=== PATIENT | female | born 1975 | race Hispanic/Latino ===

== ENCOUNTER 2019-12-26 08:10 | Outpatient (RCR) | payer OTHER, SELFPAY ==
[2019-12-26] MEDS: RHO(D) IMMUNE GLOBULIN 300 MCG SYRINGE IM (11:14)
== END 2019-12-26 08:11 | disposition home or self-care (01) ==
LOC: ANHLAB 08:10
PROVIDERS: Visit Provider Obstetrics & Gynecology
DX: Z29.13 Encounter for prophylactic Rho(D) immune globulin (principal); O36.0990 Maternal care for other rhesus isoimmunization, unspecified trimester, not applicable or unspecified; Z3A.00 Weeks of gestation of pregnancy not specified
CPT/HCPCS: 36415; 85461; 86850; 90384; 96372; J2790

== ENCOUNTER 2020-01-30 15:25 | Outpatient (CLI) | payer OTHER, SELFPAY ==
[2020-01-30 16:05] LABS: Hematocrit 30.4 % (37.0-47.0); Hemoglobin 10.1 g/dL (12.0-15.0); Mean Corpuscular HGB Conc 33.2 g/dl (32-36); Mean Corpuscular Hemoglobin 32.1 pg (26-34); Mean Corpuscular Volume 96.5 fl (80-100); Platelet Count Result 306 k/mm3 (150-375); Red Blood Count 3.15 M/mm3 (4.2-5.4); Red Cell Distribution Width 14.5 % (11.5-14.5); White Blood Count 6.9 K/mm3 (4.5-10.0)
[2020-01-31 09:50] LABS: Rapid Plasma Reagin Non-Reactive (NonReactive)
== END 2020-01-30 15:26 | disposition home or self-care (01) ==
LOC: ANHLAB 15:27
PROVIDERS: PCP Physician Assistant; Visit Provider Obstetrics & Gynecology
DX: O34.218 Maternal care for other type scar from previous cesarean delivery (principal); Z3A.29 29 weeks gestation of pregnancy
CPT/HCPCS: 36415; 85027; 86592; 86850; 86880; 86900; 86901; 86902

== ENCOUNTER 2020-01-31 11:36 | Inpatient (IN) | payer OTHER, SELFPAY ==
--- NOTE | 2020-01-30 14:58 | PC.NURSE ---
VERIFIED WITH OR SCHEDULE AND PATIENT--C/S WITH TUBAL LIGATION ON AT 1330 PATIENT SENT TO LAB FOR PRE-OP LAB DRAW AFTER PRE-ADMIT APPOINTMENT
--- NOTE | 2020-01-30 19:54 | PM.IMHP ---
H&P: HPI History of Present Illness Date/Time: 01/30/20 19:54 Chief complaint: Pre-admit; please obtain ins/id/consents on dos Narrative: Florinda Lucio is a 44 year old female [id number] 39 weeks with complicated by advanced maternal age, obesity, MTHFR, RhD negative, and previous deliveries by presents today for a repeat and bilateral tubal sterilizationShe has signed the [facility] she understands that sterilization is permanent irreversible and does not desire future fertility. She understands the failure rate of 3 to 06/999 with increased risk of ectopic and sequelae. She understands the risk of surgery including but not limited to bleeding infection injury to bladder bowel baby pelvic vessels DVT pneumonia wound infections endometritis UTI and the risk of anesthesia and she agrees to proceed. Review of Systems Review of Systems: All systems reviewed & are unremarkable except as noted in HPI and below Constitutional: Constitutional: Reports no additional constitutional complaints Eyes: Eyes: Reports no additional eye complaints ENT: Reports system reviewed and no additional complaints, except as documented Cardiovascular: Cardiovascular: Reports no additional cardiovascular complaints Respiratory: Respiratory: Reports no additional respiratory complaints Gastrointestinal: Gastrointestinal: Reports no additional gastrointestinal complaints Genitourinary: Genitourinary: Reports no additional female genitourinary complaints Musculoskeletal: Musculoskeletal: Reports no additional musculoskeletal complaints Integumentary/Breasts: Skin/Breast: Reports system reviewed and no additional complaints, except as docu Neurologic: Reports system reviewed and no additional complaints, except as documented Psychiatric: Psychiatric: Reports no additional psychiatric complaints Endocrine: Endocrine: Reports no additional endocrine complaints Hematologic/Lymphatic: Hematologic/Lymphatic: Reports no additional hematologic/lymphatic complaints Allergic/Immunologic: Allergic/Immunologic: Reports no additional allergic/immunologic complaints PMFSH Past Medical History Medical History (Updated 01/30/20 @ 20:27 by Zen Mcgee MD) Advanced maternal age (AMA), 40 years or greater Anemia Encounter for female sterilization procedure History of candidiasis of vagina History of UTI Homozygous for MTHFR gene mutation Obesity Surgical History Surgical History (Updated 01/30/20 @ 20:27 by Zen Mcgee MD) Delivery by section 09-02-1999, 37 wks 1. M, 7lbs 2oz, Primary Family History Family History Father Diabetes mellitus Leukemia Grandparent Diabetes mellitus Son Autism Social History Social History (Updated 01/30/20 @ 20:29 by Zen Mcgee MD) Smoking status: Never smoker Second hand tobacco smoke exposure: No Alcohol intake: never Substance use: never Living arrangements: with family Occupation/Education: occupation Gender identity (if verbalized by the patient): Female Sexual Orientation (if Verbalized by the Patient): Straight or Heterosexual Spiritual care concerns: No Agree to blood products: Yes Meds Home Medications and Allergies Allergies Allergy/AdvReac Type Severity Reaction Status Date / Time azithromycin Allergy Hives Verified 01/30/20 14:45 Sulfa (Sulfonamide Allergy Hives Verified 01/30/20 14:45 Antibiotics) Exam Const: General: cooperative, healthy appearing, comfortable, no acute distress, well developed, alert, awake and Physically active Nutritional Appearance: average body habitus, well nourished and overweight Orientation/consciousness: patient oriented x3 Limitations: no limitations HENMT: Head: normal to inspection Mouth: Yes moist mucous membranes Eyes: General: appearance normal, both
--- NOTE | 2020-01-30 20:37 | WPDHPUPDATE1 ---
History and Physical Update Update Date/Time: 01/30/20 20:37 History and Physical has been reviewed, including an updated exam of the patient. There are NO changes in the patient's condition. Risks, benefits, and alternatives have been discussed and questions answered. Patient agrees to proceed with procedure. 44 yo with complicated by advanced maternal age, obesity, MTHFR, RhD negative, and previous deliveries by presents today for a repeat low transverse section with delivery of baby and placenta and bilateral tubal sterilization with bilateral salpingectomy under spinal anesthesia at 39w1d. Informed consent obtained [facility] tubal consent forms signed and in chart for sterilization antibiotic prophylaxis will be given
--- NOTE | 2020-01-30 20:39 | WPDOBADMIT ---
Obstetrics - Admit Note Admission Note: record reviewed. No pertinent additions to the history and/or any subsequent changes in the physical findings that are not consistent with the expected course of the were found. Additions to the history and/or subsequent changes in the physical findings follow. None. 44 yo with complicated by advanced maternal age, obesity, MTHFR, RhD negative, and previous deliveries by presents today at 39w1d. for repeat low-transverse section with delivery of baby and placenta and bilateral tubal sterilization with bilateral salpingectomy under spinal anesthesia informed consent obtained [place] [facility] Public aid tubal consent form for sterilization is in chart antibiotic prophylaxis will be given SCDs for VTE prevention I explained her condition procedure risks and she understands accepts and agrees to proceed
[2020-01-31] VITALS (38 sets, daily range): BP systolic 89–152; BP diastolic 40–125; PULSE 64–94; RESP 16–18; TEMP 36.3–36.8; O2SAT 95–100; BMI 39.0
--- NOTE | 2020-01-31 11:36 | LDADM ---
This patient, Florinda Lucio, was admitted to Labor/Delivery/Recovery 120 on 01/31/20 at 11:36. Plans for labor, pain management and were discussed with patient. Patient/family oriented to hospital policies and general routines including ID bracelet, bed and alarms, visiting hours, pain management, procedures, bathroom and other care routines, personal items, smoking policy, room service/diet and guest tray routines, security routines, and visiting hours. Patient/Family are encouraged to report perceived risks to care and to ask questions if they do not understand what they are told or what they should do. See OBIX for further documentation.
[2020-01-31] MEDS: LACTATED RINGERS 1,000 ML 999 ML IV CONT (12:24)
[2020-01-31] MEDS: LACTATED RINGERS 1,000 ML 125 ML IV CONT (13:08)
--- NOTE | 2020-01-31 13:16 | WPDANESEPPF ---
Anes - Initial Pre Proc Eval Procedure: Operation Date: 01/31/20 13:30 Proposed Procedures p Repeat Low Transverse Section With Bilateral Tubal Ligation, Bilateral Salpingectomy - Zen Mcgee MD Date/Time: 01/31/20 13:16 Surgeon: Zen Mcgee MD Pre Op Diagnosis: C/S Patient Data Age: 44 Gender: F Height: 1.6 m Weight: 100 kg Last Vital Signs Pulse 94 01/31/20 12:27 BP 113/64 01/31/20 12:27 Allergies Allergy/AdvReac Type Severity Reaction Status Date / Time azithromycin Allergy Hives Verified 01/30/20 14:45 Sulfa (Sulfonamide Allergy Hives Verified 01/30/20 14:45 Antibiotics) Patient hx anesthesia problems: none Family hx anesthesia problems: none PMFSH Past Medical History Medical History (Updated 01/30/20 @ 20:27 by Zen Mcgee MD) Advanced maternal age (AMA), 40 years or greater Anemia Encounter for female sterilization procedure History of candidiasis of vagina History of UTI Homozygous for MTHFR gene mutation Obesity Surgical History Surgical History (Updated 01/30/20 @ 20:27 by Zen Mcgee MD) Delivery by section 09-02-1999, 37 wks 1. M, 7lbs 2oz, Primary Family History Family History Father Diabetes mellitus Leukemia Grandparent Diabetes mellitus Son Autism Social History Social History (Updated 01/30/20 @ 20:29 by Zen Mcgee MD) Smoking status: Never smoker Second hand tobacco smoke exposure: No Alcohol intake: never Substance use: never Gender identity (if verbalized by the patient): Female Spiritual care concerns: No Agree to blood products: Yes Anes - Eval Final PreProcedure Day of Procedure 01/31/20 13:16 Patient weight: obese Heart: regular rate and rhythm Lungs: clear to auscultation and normal air movement Airway: Mallampati scale class II Neurological: alert and oriented Last oral intake: >/= 8 hours ASA classification: III Emergent: no Anesthetic plan: proceed Anesthesia type and monitoring: regional spinal Informed Consent: The patient's anesthetic plan and its attendant risks and benefits were discussed with the patient/family/POA. Questions were solicited and answers provided to the satisfaction of the patient/family/POA.
[2020-01-31] MEDS: ceFAZolin 2 GM/D5W 50 ML 2 GM/50 ML BAG IVPB (13:36)
--- NOTE | 2020-01-31 13:40 | PM.PROC ---
Procedure Note - Detailed Date of procedure: 01/31/20 Pre-op diagnosis: C/S Term Previous desires repeat section Multiparity desires bilateral tubal sterilization Advanced maternal age Homozygous for MTHFR gene mutation Obesity Anemia Post-op diagnosis: same (Delivered viable female infant and placenta) Procedure performed: Repeat low transverse section with delivery of viable female infant and placenta Bilateral tubal sterilization with bilateral salpingectomy complete Description of procedure: Informed consent obtained patient taken to the operating room spinal anesthetic was administered in the sitting position patient placed in supine position Jackson catheter inserted abdomen prepped and draped in usual sterile fashion time-out was then performed. Elliptical incision was made around the old scar and the old scar was removed using electrocautery fascia was entered with electrocautery bilaterally undermined superior inferior rectus muscle the midline peritoneum entered with electrocautery vesicouterine peritoneal reflection was incised transversely. A transverse incision was then made to the uterus clear fluid was obtained upon entry to the amniotic sac the uterus incision was digitally divided and the vertex was then delivered via the abdominal incision nuchal cord x1 reduced of note cord was in front of the head with Vasa previa the was delivered and placed onto the maternal abdomen where the nose and throat were bulb suction number spontaneous respirations and cry no observed abnormalities in the examination cord was clamped and cut and the infant was handed to the nursery nurse in attendance scores given 8 9 weight 12989 in long taken to the nursery in stable condition. Cord gas obtained cord blood obtained the placenta was then delivered intact three-vessel cord the uterus contracted well dosing given intravenously and 10 units into the myometrium the uterus was externalized blood clots membranes removed from the intrauterine cavity. The uterus was externalized and the uterine incision was then repaired in 2 layers with 0 Vicryl in a running interlocking fashion the 2nd being an imbricating stitch. Bilateral tubal sterilization was then performed in the following fashion the fallopian tubes and a bilateral sequential fashion were traced out to the fimbriated aspect the fallopian tube were grasped with Neil clamps and peons were placed at the proximal tube the arcuate vessel and the fimbrial varicose electrocautery was used to excise both fallopian tubes and sent off for pathologic confirmation the proximal tube the arcuate vessel and the fimbriae of Caren were then doubly ligated with 2 0 silk suture and hemostasis was excellent blood and clots removed from the cul-de-sac after irrigation and the uterus was returned to the peritoneal cavity the sponge needle instrument counts correct. The anterior peritoneum and rectus muscles reapproximated with 0 Vicryl suture in a running fashion the fascia was closed with 2. Quill S RS system in a bilateral fashion Jessica's fascia reapproximated with 3 0 plain interrupted fashion skin closed with absorbable ebenezer deep Dermabond to the skin and abdominal dressing of Mepilex was placed after Dermabond to the skin and an abdominal binder was placed to the abdomen for support patient was taken to the recovery room in stable condition she tolerated procedure well both mom and baby are in stable condition Implants: None Anesthesia: spinal Surgeon: Zen Mcgee MD Cost Accountant: tax examining technician x2 Estimated blood loss (mL): 460 IV fluids (mL): 1,500 Urine output (mL): 225 Drains: No Packing: No Pathology: yes (Placenta, cord blood gases, cord blood, complete right and left fallopian tube) Complications: None Condition: stable Disposition: floor Findings: Viable female infant spontaneous respirations and cry no observed abnormalities on the newb
--- NOTE | 2020-01-31 13:46 | PM.OBPRVD ---
OB - Delivery Note Procedure Delivery date: 01/31/20 Procedure: Procedures Operation Date: 01/31/20 13:30 Repeat low transverse section with delivery of viable female and placenta Bilateral tubal sterilization with bilateral complete salpingectomy events: Previous Intrapartal events: None Induction method: none Delivery monitor: external FHT and external uterine Route of delivery: (Repeat low-transverse with delivery of viable female and placenta, bilateral tubal sterilization bilateral complete salpingectomy) Laceration Description: None Specimen: Yes Anesthesia type: Spinal Disposition: PACU Baby Date of : 01/31/20 Time of : 14:04 Weeks of gestation at delivery: 39 gender: Female (Lorraine) Weight (pounds): 7 Weight (ounces): 10 presentation: vertex position: Left Occiput Anterior Placenta delivery description: Manual Removal and Normal Configuration cord vessel description: Nuchal Cord and Loose score one minute: 8 score five minutes: 9 Narrative: See dictated delivery note
[2020-01-31] MEDS: OXYTOCIN 30 UNITS/NS 500 ML 30 UNITS/500 ML BAG 125 UNITS IV CONT (15:12)
[2020-01-31] MEDS: KETOROLAC 30 MG/ML VIAL (*BKC) IV PUSH (19:03)
[2020-02-01] VITALS: BP 110/58; PULSE 72; RESP 16; TEMP 37.1; O2SAT 100
[2020-02-01] MEDS: HYDROcodone/acetaminophen (*CRX) 5-325 MG TABLET 1 TAB PO (04:30)
[2020-02-01] MEDS: IBUPROFEN 600 MG TABLET PO ×2 (04:30→10:51)
[2020-02-01 04:59] VITALS: BP 104/54; PULSE 60; RESP 16; TEMP 36.8; O2SAT 98
[2020-02-01 06:20] LABS: Basophils Percent Auto 0.2 % (0.2-1.2); Eosinophils Absolute Auto 0.1 K/mm3 (0-0.3); Eosinophils Percent Auto 1.1 % (0-4.4); Hematocrit 24.5 % (37.0-47.0); Hemoglobin 8.1 g/dL (12.0-15.0); Immature Granulocyte Absolute 0.07 K/mm3 (0.00-0.031); Immature Granulocyte Percent A 0.7 % (0-0.5); Lymphocytes Absolute Auto 0.84 K/mm3 (0.9-3.2); Lymphocytes Percent Auto 8.7 % (18.3-44.2); Mean Corpuscular HGB Conc 33.1 g/dl (32-36); Mean Corpuscular Hemoglobin 31.3 pg (26-34); Mean Corpuscular Volume 94.6 fl (80-100); Mean Platelet Volume 10.4 fl (7.4-10.4); Monocytes Absolute Auto 0.5 K/mm3 (0.1-0.6); Monocytes Percent Auto 4.9 % (2.6-8.5); Neutrophils Absolute Auto 8.2 K/mm3 (1.3-6.7); Neutrophils Percent Auto 84.4 % (45.5-73.1); Platelet Count Result 268 k/mm3 (150-375); Red Blood Count 2.59 M/mm3 (4.2-5.4); Red Cell Distribution Width 14.5 % (11.5-14.5); White Blood Count 9.7 K/mm3 (4.5-10.0)
[2020-02-01 08:40] VITALS: BP 81/48; PULSE 77; RESP 18; TEMP 36.8; O2SAT 97
[2020-02-01] MEDS: SIMETHICONE 80 MG TAB.CHEW PO ×3 (10:50→22:07)
[2020-02-01] MEDS: HYDROcodone/acetaminophen (*CRX) 10-325 MG TABLET 1 TAB PO ×3 (10:50→22:07)
[2020-02-01 11:25] VITALS: BP 96/54; PULSE 72; RESP 16; TEMP 36.8; O2SAT 97
--- NOTE | 2020-02-01 11:55 | PC.NURSE ---
Mother called out for assist with latching, has been more awake and eager to feed the last few feedings. Reviewed infant feeding cues, frequencies, duration of feedings, feeding elimination flow sheet, and signs of adequate intake. Demonstrated stimulation techniques to wake for feeding. Assisted with to breast. Reviewed positioning/alignment in cross cradle, holding breast in U hold and guided asymmetrical latch on. was able to latch correctly. nursed eagerly with steady draws and frequent swallowing noted, followed with pausing. Reviewed signs of a correct latch, effective nursing and suck swallow ratio. Infant was able to maintain latch without discomfort to mother. Discussed the difference of effective nursing vs. ineffective nursing. Nipple care reviewed. Suggested mother stimulate to keep nursing effectively for increased intake and to assist with maintaining deep latch. Mother reports she feels this is more comfortable and does not believe infant has been latched this deeply. Reviewed transition to breast milk, signs of adequate intake, and engorgement/relief. Instructed to call ICP if intake/output less than required. Reviewed regular medications mother is taking. Information provided per Elyssa. Reviewed community resources on the [facility] website and in the Mom/Baby guide. Information on outpatient services provided. Mother has no further questions at this time.
[2020-02-01] MEDS: RHO(D) IMMUNE GLOBULIN 300 MCG SYRINGE IM (14:01)
--- NOTE | 2020-02-01 17:16 | WPDANLDPN2 ---
Anes-Prog Note L&D Date/Time: 02/01/20 17:16 Comfortable throughout: section Neuraxial method: spinal Epidural/Spinal procedure site: clean & non-tender Neuro status: Neuro function grossly intact. Cardiovascular status: normal Respiratory status: normal Airway patency: baseline Mental status: baseline Post-Op hydration status: normal Vital Signs: Last Vital Signs Temp 36.8 C 02/01/20 11:25 Pulse 72 02/01/20 11:25 Resp 16 02/01/20 11:25 BP 96/54 L 02/01/20 11:25 Pulse Ox 97 02/01/20 11:25 Pain score (VAS): 0 I/O: Intake & Output 02/01/20 02/01/20 02/01/20 07:59 15:59 23:59 Intake Total 650 1040 Output Total 450 800 Balance 200 240 Post-procedural complaints: none Patient feedback: Patient satisfied with anesthetic care.
--- NOTE | 2020-02-01 17:16 | WPDANLDNPN2 ---
Anes-Prog Note L&D-Neuraxial Date/Time: 02/01/20 17:16 Neuraxial medications: intrathecal PF morphine Opiod-related complaints: none Patient feedback: Patient satisfied with post-operative pain management.
[2020-02-01 19:56] VITALS: BP 91/58; PULSE 83; RESP 16; TEMP 36.7; O2SAT 99
[2020-02-02] MEDS: HYDROcodone/acetaminophen (*CRX) 5-325 MG TABLET 1 TAB PO ×3 (05:13→15:00)
[2020-02-02] MEDS: IBUPROFEN 600 MG TABLET PO ×2 (05:13→10:52)
[2020-02-02] MEDS: SIMETHICONE 80 MG TAB.CHEW PO ×2 (05:13→10:52)
--- NOTE | 2020-02-02 07:30 | PC.NURSE ---
Pt introductions made and plan of care discussed per post op c section, pain management, daily care activities and pending discharge to home. PT verbalized understanding of such care.
[2020-02-02] MEDS: DOCUSATE SODIUM 100 MG CAPSULE PO (10:51)
[2020-02-02] MEDS: MULTIVIT/MIN/PREN/FOL AC/IRON TABLET 1 TAB PO ×2 (10:51→10:52)
[2020-02-02 10:52] VITALS: BP 111/93; PULSE 82; RESP 18; TEMP 36.9; O2SAT 100
[2020-02-02] MEDS: POLYSACCHARIDE IRON COMPLEX 150 MG CAPSULE PO (10:53)
--- NOTE | 2020-02-02 13:48 | PM.OBDSVD ---
DS: Admitting Diagnosis Admitting Diagnosis Admitting Diagnosis: C/S Term Previous desires repeat section Multiparity desires bilateral tubal sterilization Advanced maternal age Homozygous for MTHFR gene mutation Obesity Anemia DS: Discharge Diagnosis Discharge Diagnosis (1) Term delivered: Code(s): O80 - Encounter for full-term uncomplicated delivery Status: Acute (2) Delivery by section: Status: Acute (3) Advanced maternal age (AMA), 40 years or greater: Status: Acute (4) Encounter for female sterilization procedure: Code(s): Z30.2 - Encounter for sterilization Status: Acute (5) Homozygous for MTHFR gene mutation: Code(s): E72.12 - Methylenetetrahydrofolate reductase deficiency Status: Acute (6) Obesity: Qualifiers: Obesity classification: adult class 2 (BMI 35 - 39.9) Code(s): E66.9 - Obesity, unspecified Status: Acute (7) Anemia: Qualifiers: Anemia type: iron deficiency Code(s): D64.9 - Anemia, unspecified Status: Acute (8) Rh negative status during : Code(s): O26.899 - Other specified related conditions, unspecified trimester; Z67.91 - Unspecified blood type, Rh negative Status: Acute OB - DS: Summary Hospital Course Time spent discussing smoking cessation with patient: 3 to 10 minutes OB Procedures : Ultrasound OB Procedures Intrapartum: low cervical, transverse and Tubal ligation OB Procedures: : P.P. tubal ligation Peripartum Data Delivery Method: Section Laceration Description: None Episiotomy description: None Procedures: Procedures Operation Date: 01/31/20 13:30 Repeat low-transverse section with delivery of viable female infant and placenta Bilateral tubal sterilization with bilateral salpingectomy complete complications: none 1: Gender: Female Disposition of : home Status at Discharge Functional status at discharge: independent ambulation Overall status at discharge: patient is back to baseline Time Spent with Patient Time attestation: Total time spent providing and/or coordinating discharge services: Time spent: Less than 30 minutes Exam Const: General: cooperative, healthy appearing, comfortable, no acute distress, well developed, alert, awake and Physically active Nutritional Appearance: average body habitus, well nourished and overweight Limitations: no limitations HENMT: Head: normal to inspection Eyes: General: appearance normal, both eyes and all related structures Neck: Neck: normal visual inspection and full ROM Chest: Chest palpation & inspection: normal inspection of the chest Breast/axilla inspection: normal inspection of the breasts Breast/axilla palpation: normal palpation of the breasts Resp: Effort & Inspection: normal respiratory effort Auscultation: clear to auscultation bilaterally Cardio: Palpation: normal PMI Rate: regular rate Rhythm: regular rhythm Heart sounds: S1 normal heart sound present and S2 normal heart sound present GI: Inspection: normal to inspection Discharge Plan Discharge Attending physician on discharge: Zen Mcgee Discharging Clinician: Zen Mcgee Anticipated Discharge Date/Time: 02/02/20 15:02 Patient Disposition: Home, Self-Care Activity: no straining, no driving and may drive after 2 weeks Diet: as tolerated and regular Wound Care Instructions: follow printed instructions Discharge Instructions: Education: Mom and Baby Guide Given to: Mother Follow-Up: Call your delivering provider's office for an appointment to be seen in: 1 Week Mom and baby should come to the [facility] for the follow-up appointment. Appointment Date/Time: February 05, 2020 at 10:00 am What to expect at your follow-up visit: Hannah
--- NOTE | 2020-02-02 14:45 | PC.NURSE ---
PT received discharge instructions per protocol and verbalized understanding of such care.
--- NOTE | 2020-02-02 15:06 | PC.NURSE ---
Pt discharged to home ambulatory accompanied by and and taken to waiting car. follow up appts confirmed
[2020-02-05 10:24] VITALS: BP 117/78; PULSE 67; RESP 18; TEMP 36.8; O2SAT 99
== END 2020-02-02 15:06 | disposition home or self-care (01) | DRG 540 ==
LOC: ANHLDR 15:06 → ANHOB2 17:20
PROVIDERS: Admitting Provider Obstetrics & Gynecology; PCP Physician Assistant; Visit Provider Obstetrics & Gynecology
PROC: 10D00Z1 Extraction of Products of Conception, Low, Open Approach (ICD-10-PCS; CPT 59514; principal; 2020-01-31 13:30)
DX: O34.211 Maternal care for low transverse scar from previous cesarean delivery (principal); Z37.0 Single live birth; Z3A.39 39 weeks gestation of pregnancy; O99.214 Obesity complicating childbirth; E66.9 Obesity, unspecified; O36.0930 Maternal care for other rhesus isoimmunization, third trimester, not applicable or unspecified; O99.284 Endocrine, nutritional and metabolic diseases complicating childbirth; E72.12 Methylenetetrahydrofolate reductase deficiency; O99.02 Anemia complicating childbirth; D64.9 Anemia, unspecified; Z30.2 Encounter for sterilization
CPT/HCPCS: 36415; 85025; 85461; 88302; 88307; 90384; A9270; J0131; J0690; J1200; J1885; J2274; J2405; J2590; J2790; J7120

== ENCOUNTER 2022-02-22 08:21 | Outpatient (CLI) | payer BC, SELFPAY ==
--- NOTE | ~2022-02-22 | MMUS_ITS ---
EXAMINATION: MM diagnostic [facility] BI w ho, US breast LT limited HISTORY: Palpable lump in the left breast for one month. TECHNIQUE: Additional 3-D tomosynthesis images of the left breast were performed and synthetic 2-D im ages were generated. CAD analysis was submitted and interpreted. High resolution Limited left breast ultrasound was performed. COMPARISON: None BREAST PARENCHYMAL COMPOSITION: Breast composed of scattered areas of fibroglandular density FINDINGS: MAMMOGRAPHIC FINDINGS: There are no suspicious masses, calcifications or architectural distortion in either breast to sugges t malignancy. ULTRASOUND: Limited left breast ultrasound: Normal heterogeneous echotexture is present in the area of palpable c oncern. No discrete solid or cystic mass. IMPRESSION: 1. No evidence for malignancy in either breast. 2. Routine yearly screening mammogram and regular clinical breast examination are recommended. BI-RADS Category 1: Negative Reviewed, dictated and finalized at location B. OGRAPHY PROFESSOR IMPRESSION: 1. No evidence for malignancy in either breast. 2. Routine yearly screening mammogram and regular clinical breast examination a re recommended. BI-RADS Category 1: Negative
== END 2022-02-22 08:22 ==
DX: N63.20 Unspecified lump in the left breast, unspecified quadrant (principal)
CPT/HCPCS: 76642; 77062; 77066; G0279

== ENCOUNTER 2023-10-14 14:17 | Outpatient (CLI) | payer OTHER, MEDICAID, SELFPAY ==
--- NOTE | ~2023-10-14 | MM_ITS ---
EXAMINATION: [facility] HISTORY: Screening TECHNIQUE: Craniocaudal and mediolateral oblique 3-D tomosynthesis images were obtained and synthetic 2-D images were generated. CAD analysis was submitted and interpreted. COMPARISON: 02/22/2022 BREAST PARENCHYMAL COMPOSITION: Not dense: There are scattered areas of fibroglandular density. FINDINGS: The left breast is stable without evidence for malignancy. There are developing small radio lucent masses in the upper outer quadrant of the right breast. IMPRESSION: 1. Developing small radiolucent masses upper outer quadrant of the right breast, middle third. 2. Additional mammographic views and possible breast ultrasound are recommended. BI-RADS Category 0: Incomplete: Needs additional imaging evaluation. Reviewed, dictated and finalized at location B. IMPRESSION: 1. Developing small radiolucent masses upper outer quadrant of the right breast , middle third. 2. Additional mammographic views and possible breast ultrasound are recommended . BI-RADS Category 0: Incomplete: Needs additional imaging evaluation.
== END 2023-10-14 14:18 | disposition home or self-care (01) ==
PROVIDERS: PCP Internal Medicine; Visit Provider Internal Medicine
DX: Z12.31 Encounter for screening mammogram for malignant neoplasm of breast (principal); R92.8 Other abnormal and inconclusive findings on diagnostic imaging of breast
CPT/HCPCS: 77063; 77067

== ENCOUNTER 2023-11-09 10:39 | Outpatient (CLI) | payer MEDICAID, SELFPAY ==
--- NOTE | ~2023-11-09 | MMUS_ITS ---
EXAMINATION: MM diagnostic percy RT w ho, US breast RT limited HISTORY: Follow-up right breast masses TECHNIQUE: Additional 3-D tomosynthesis images of the right breast were performed and synthetic 2-D i mages were generated. CAD analysis was submitted and interpreted. High resolution Limited right breas t ultrasound was performed. COMPARISON: Comparison to multiple prior studies sequentially, with oldest reviewed study dated 02/11. BREAST PARENCHYMAL COMPOSITION: Not dense: There are scattered areas of fibroglandular density. FINDINGS: MAMMOGRAPHIC FINDINGS: There are small circumscribed radiolucent masses centered in the upper outer quadrant of the right br east, middle third. There are no suspicious calcifications or architectural distortion. ULTRASOUND: Limited right breast ultrasound: At 11:00, 7 cm from the nipple there is a septated cyst measuring 5 mm. At 11:00, 4 cm from the nipple there is an oval circumscribed encapsulated 6 mm hypoechoic mass w ith parallel orientation, no posterior features and no internal vascularity, likely benign. At 12:00, 5 cm from the nipple there is an oval hypoechoic circumscribed parallel oriented mass without medical psychotherapist ior features or internal vascularity measuring 6 mm. IMPRESSION: 1. Probable benign right breast masses. 2. Recommend 6 month follow-up diagnostic right mammogram and ultrasound. BI-RADS category 3, probably benign findings. Reviewed, dictated and finalized at location B. IMPRESSION: 1. Probable benign right breast masses. 2. Recommend 6 month follow-up diagnostic right mammogram and ultrasound. BI-RADS category 3, probably benign findings.
== END 2023-11-09 10:40 | disposition home or self-care (01) ==
LOC: ANHIMG 10:40
PROVIDERS: PCP Internal Medicine; Visit Provider Internal Medicine
DX: R92.8 Other abnormal and inconclusive findings on diagnostic imaging of breast (principal)
CPT/HCPCS: 76642; 77061; 77065; G0279